=== PATIENT | male | born 1950 | race Caucasian/White ===

== ENCOUNTER → 2016-09-05 | Outpatient (CLI) | payer MEDICARE ==
[~2016-09-05] MED LIST: AMLO5TAB22 PO; DIOV320T PO; METF-324 PO; OMEP20TA PO; PREC25TA PO
[2016-09-05 10:01] LABS: HEMATOCRIT 33.9 % (39.0-51.0); MEAN CELL VOLUME 81.5 FL (80.0-100.0); MEAN CORPUSCULAR HEMOGLOBIN 28.1 PG (27.0-34.0); MEAN CORPUSCULAR HGB CONC 34.5 % (32.0-36.0); PLATELET COUNT 220 TH/MM3 (150-450); RED BLOOD COUNT 4.16 MIL/MM3 (4.50-5.90); RED CELL DISTRIBUTION WIDTH 13.7 % (11.6-17.2); REVIEW FLAG FINAL; WHITE BLOOD COUNT 7.9 TH/MM3 (4.0-11.0)
[2016-09-05 10:08] LABS: HEMOGLOBIN A1a 1.9 %; HEMOGLOBIN A1b 1.9 %; HEMOGLOBIN Ao 81.5 %; HEMOGLOBIN LA1C 2.6 %; HEMOGLOBIN P3 4.3 %
[2016-09-05 10:57] LABS: ALKALINE PHOSPHATASE 55 U/L (45-117); ALT (GPT) 32 U/L (12-78); ANION GAP 9 MEQ/L (5-15); AST (GOT) 15 U/L (15-37); BICARBONATE 26.1 MEQ/L (21.0-32.0); BLOOD UREA NITROGEN 19 MG/DL (7-18); CHLORIDE 103 MEQ/L (98-107); GLOMERULAR FILTRATION RATE 57 ML/MIN (>89); GLUCOSE,FASTING 203 MG/DL (74-99); HDL CHOLESTEROL 37.5 MG/DL (40.0-60.0); LDL CHOLESTEROL 101 MG/DL (0-99); POTASSIUM 4.3 MEQ/L (3.5-5.1); SODIUM (NA) 138 MEQ/L (136-145); TOTAL BILIRUBIN ADULT 0.5 MG/DL (0.2-1.0)
== END ==
LOC: CLAB 09:28
PROVIDERS: ATTEND Family Medicine
DX: E78.4 Other hyperlipidemia (principal); E11.9 Type 2 diabetes mellitus without complications; I10 Essential (primary) hypertension; N28.9 Disorder of kidney and ureter, unspecified
CPT/HCPCS: 36415; 80053; 80061; 83036; 84443; 85027

== ENCOUNTER 2016-09-23 18:47 | Emergency (ER) | payer OTHER, MEDICARE ==
[~2016-09-23] VITALS: Ht 182.9 cm; Wt 99.0 kg
[2016-09-23 18:49] VITALS: BP 194/89; PULSE 98; RESP 17; TEMP 98.1; O2SAT 98
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
== END 2016-09-23 19:30 | disposition home or self-care (01) ==
LOC: NEPK 18:47
DX: Z04.1 Encounter for examination and observation following transport accident (principal); I10 Essential (primary) hypertension
CPT/HCPCS: 99283

== ENCOUNTER → 2016-11-17 | Outpatient (CLI) | payer MEDICARE ==
[2016-11-17 08:58] LABS: AUTOMATED NEUTROPHIL # 4.1 TH/MM3 (1.8-7.7); BASOPHIL # 0.1 TH/MM3 (0-0.2); EOSINOPHIL # 0.3 TH/MM3 (0-0.4); HEMATOCRIT 34.7 % (39.0-51.0); HEMO FLAGS DIFF FINAL; LYMPH % 24.6 % (9.0-44.0); LYMPHOCYTE # 1.6 TH/MM3 (1.0-4.8); MEAN CELL VOLUME 81.2 FL (80.0-100.0); MEAN CORPUSCULAR HEMOGLOBIN 28.2 PG (27.0-34.0); MEAN CORPUSCULAR HGB CONC 34.7 % (32.0-36.0); MONO % 8.9 % (0.0-8.0); NEUT % 61.5 % (16.0-70.0); PLATELET COUNT 237 TH/MM3 (150-450); RED BLOOD COUNT 4.27 MIL/MM3 (4.50-5.90); RED CELL DISTRIBUTION WIDTH 14.3 % (11.6-17.2); WHITE BLOOD COUNT 6.7 TH/MM3 (4.0-11.0)
== END ==
LOC: CLAB 08:26
PROVIDERS: ATTEND Family Medicine
DX: E11.9 Type 2 diabetes mellitus without complications (principal); D64.9 Anemia, unspecified
CPT/HCPCS: 36415; 85025

== ENCOUNTER → 2017-01-13 | Outpatient (CLI) | payer MEDICARE ==
[2017-01-13 11:53] LABS: AUTOMATED NEUTROPHIL # 4.7 TH/MM3 (1.8-7.7); BASOPHIL # 0.1 TH/MM3 (0-0.2); BASOPHIL % 0.8 % (0.0-2.0); EOSINOPHIL # 0.2 TH/MM3 (0-0.4); EOSINOPHIL % 2.3 % (0.0-4.0); HEMO FLAGS DIFF FINAL; LYMPH % 20.8 % (9.0-44.0); LYMPHOCYTE # 1.4 TH/MM3 (1.0-4.8); MEAN CELL VOLUME 81.4 FL (80.0-100.0); MEAN CORPUSCULAR HEMOGLOBIN 27.8 PG (27.0-34.0); MEAN CORPUSCULAR HGB CONC 34.1 % (32.0-36.0); NEUT % 69.1 % (16.0-70.0); PLATELET COUNT 248 TH/MM3 (150-450); RED BLOOD COUNT 4.05 MIL/MM3 (4.50-5.90); RED CELL DISTRIBUTION WIDTH 14.6 % (11.6-17.2); WHITE BLOOD COUNT 6.8 TH/MM3 (4.0-11.0)
[2017-01-13 12:17] LABS: ANION GAP 7 MEQ/L (5-15); AST (GOT) 15 U/L (15-37); BICARBONATE 25.8 MEQ/L (21.0-32.0); BLOOD UREA NITROGEN 25 MG/DL (7-18); CHLORIDE 105 MEQ/L (98-107); GLOMERULAR FILTRATION RATE 42 ML/MIN (>89); GLUCOSE,FASTING 129 MG/DL (74-99); POTASSIUM 4.4 MEQ/L (3.5-5.1); SODIUM (NA) 138 MEQ/L (136-145)
[2017-01-13 12:29] LABS: ALKALINE PHOSPHATASE 64 U/L (45-117); ALT (GPT) 27 U/L (12-78); HDL CHOLESTEROL 35.5 MG/DL (40.0-60.0); LDL CHOLESTEROL 123 MG/DL (0-99); TOTAL BILIRUBIN ADULT 0.5 MG/DL (0.2-1.0)
[2017-01-13 17:19] LABS: HEMOGLOBIN A1a 1.2 %; HEMOGLOBIN A1b 2.1 %; HEMOGLOBIN Ao 81.4 %; HEMOGLOBIN LA1C 2.5 %; HEMOGLOBIN P3 4.4 %
== END ==
LOC: CLAB 11:26
PROVIDERS: ATTEND Family Medicine
DX: E11.9 Type 2 diabetes mellitus without complications (principal); D64.9 Anemia, unspecified; I10 Essential (primary) hypertension; N40.0 Benign prostatic hyperplasia without lower urinary tract symptoms; N28.9 Disorder of kidney and ureter, unspecified
CPT/HCPCS: 36415; 80053; 80061; 83036; 84443; 85025

== ENCOUNTER → 2017-04-04 | Outpatient (CLI) | payer MEDICARE ==
[2017-04-04 10:11] LABS: ALBUMIN 3.7 GM/DL (3.4-5.0); AST (GOT) 19 U/L (15-37); BICARBONATE 24.8 MEQ/L (21.0-32.0); BLOOD UREA NITROGEN 32 MG/DL (7-18); CALCIUM 8.5 MG/DL (8.5-10.1); CHLORIDE 106 MEQ/L (98-107); CREATININE 1.49 MG/DL (0.60-1.30); GLOMERULAR FILTRATION RATE 47 ML/MIN (>89); GLUCOSE,FASTING 194 MG/DL (74-99); SODIUM (NA) 137 MEQ/L (136-145)
[2017-04-04 10:12] LABS: ALT (GPT) 35 U/L (12-78)
[2017-04-04 10:15] LABS: ALKALINE PHOSPHATASE 65 U/L (45-117); TOTAL BILIRUBIN ADULT 0.4 MG/DL (0.2-1.0); TOTAL PROTEIN 7.3 GM/DL (6.4-8.2)
[2017-04-04 10:59] LABS: HEMATOCRIT 34.1 % (39.0-51.0); HEMOGLOBIN 11.7 GM/DL (13.0-17.0); MEAN CELL VOLUME 80.5 FL (80.0-100.0); MEAN CORPUSCULAR HEMOGLOBIN 27.7 PG (27.0-34.0); MEAN CORPUSCULAR HGB CONC 34.5 % (32.0-36.0); MEAN PLATELET VOLUME 7.5 FL (7.0-11.0); PLATELET COUNT 252 TH/MM3 (150-450); RED BLOOD COUNT 4.23 MIL/MM3 (4.50-5.90); RED CELL DISTRIBUTION WIDTH 14.5 % (11.6-17.2); WHITE BLOOD COUNT 6.5 TH/MM3 (4.0-11.0)
[2017-04-04 16:51] LABS: HEMOGLOBIN A1C 7.9 % (4.3-6.0)
== END ==
LOC: CLAB 09:15
PROVIDERS: ATTEND Family Medicine
DX: E78.4 Other hyperlipidemia (principal); E11.9 Type 2 diabetes mellitus without complications; I10 Essential (primary) hypertension; N40.0 Benign prostatic hyperplasia without lower urinary tract symptoms; N28.9 Disorder of kidney and ureter, unspecified; D64.9 Anemia, unspecified; Z12.5 Encounter for screening for malignant neoplasm of prostate; Z68.28 Body mass index [BMI] 28.0-28.9, adult
CPT/HCPCS: 36415; 80053; 82652; 83036; 83970; 85027

== ENCOUNTER → 2017-05-03 | Outpatient (CLI) | payer MEDICARE ==
[2017-05-03 09:37] LABS: HEMATOCRIT 32.6 % (39.0-51.0); MEAN CELL VOLUME 79.9 FL (80.0-100.0); MEAN CORPUSCULAR HEMOGLOBIN 26.9 PG (27.0-34.0); MEAN CORPUSCULAR HGB CONC 33.7 % (32.0-36.0); PLATELET COUNT 228 TH/MM3 (150-450); RED BLOOD COUNT 4.08 MIL/MM3 (4.50-5.90); RED CELL DISTRIBUTION WIDTH 14.8 % (11.6-17.2); REVIEW FLAG FINAL; WHITE BLOOD COUNT 7.2 TH/MM3 (4.0-11.0)
[2017-05-03 10:03] LABS: ANION GAP 7 MEQ/L (5-15); AST (GOT) 14 U/L (15-37); BICARBONATE 23.9 MEQ/L (21.0-32.0); BLOOD UREA NITROGEN 30 MG/DL (7-18); CHLORIDE 105 MEQ/L (98-107); GLOMERULAR FILTRATION RATE 42 ML/MIN (>89); GLUCOSE,FASTING 151 MG/DL (74-99); POTASSIUM 4.2 MEQ/L (3.5-5.1); SODIUM (NA) 136 MEQ/L (136-145)
[2017-05-03 10:04] LABS: ALT (GPT) 27 U/L (12-78)
[2017-05-03 10:14] LABS: ALKALINE PHOSPHATASE 73 U/L (45-117); LDL CHOLESTEROL 110 MG/DL (0-99); TOTAL BILIRUBIN ADULT 0.6 MG/DL (0.2-1.0)
[2017-05-03 17:21] LABS: HEMOGLOBIN A1a 1.2 %; HEMOGLOBIN A1b 2.3 %; HEMOGLOBIN Ao 80.9 %; HEMOGLOBIN LA1C 2.6 %; HEMOGLOBIN P3 4.5 %
== END ==
LOC: CLAB 08:44
PROVIDERS: ATTEND Family Medicine
DX: E78.4 Other hyperlipidemia (principal); E11.9 Type 2 diabetes mellitus without complications; I10 Essential (primary) hypertension; N40.0 Benign prostatic hyperplasia without lower urinary tract symptoms; N28.9 Disorder of kidney and ureter, unspecified; D64.9 Anemia, unspecified
CPT/HCPCS: 36415; 80053; 80061; 83036; 84153; 84443; 85027

== ENCOUNTER → 2017-09-08 | Outpatient (CLI) | payer MEDICARE ==
[2017-09-08 09:09] LABS: HEMATOCRIT 34.7 % (39.0-51.0); HEMOGLOBIN 11.9 GM/DL (13.0-17.0); MEAN CELL VOLUME 80.1 FL (80.0-100.0); MEAN CORPUSCULAR HEMOGLOBIN 27.5 PG (27.0-34.0); MEAN CORPUSCULAR HGB CONC 34.4 % (32.0-36.0); MEAN PLATELET VOLUME 7.8 FL (7.0-11.0); PLATELET COUNT 239 TH/MM3 (150-450); RED BLOOD COUNT 4.33 MIL/MM3 (4.50-5.90); RED CELL DISTRIBUTION WIDTH 14.6 % (11.6-17.2); WHITE BLOOD COUNT 5.8 TH/MM3 (4.0-11.0)
[2017-09-08 09:46] LABS: ALBUMIN 3.8 GM/DL (3.4-5.0); AST (GOT) 22 U/L (15-37); BICARBONATE 24.1 MEQ/L (21.0-32.0); BLOOD UREA NITROGEN 28 MG/DL (7-18); CALCIUM 8.5 MG/DL (8.5-10.1); CHLORIDE 106 MEQ/L (98-107); CREATININE 1.61 MG/DL (0.60-1.30); GLOMERULAR FILTRATION RATE 43 ML/MIN (>89); GLUCOSE,FASTING 188 MG/DL (74-99); SODIUM (NA) 138 MEQ/L (136-145)
[2017-09-08 09:47] LABS: CHOLESTEROL 208 MG/DL (120-200)
[2017-09-08 09:58] LABS: ALKALINE PHOSPHATASE 64 U/L (45-117); ALT (GPT) 32 U/L (12-78); CHOLESTEROL/ HDL RATIO 6.01 RATIO; HDL CHOLESTEROL 34.6 MG/DL (40.0-60.0); LDL CHOLESTEROL 118 MG/DL (0-99); TOTAL BILIRUBIN ADULT 0.3 MG/DL (0.2-1.0); TOTAL PROTEIN 7.2 GM/DL (6.4-8.2); TRIGLYCERIDES 277 MG/DL (42-150)
== END ==
LOC: CLAB 08:44
PROVIDERS: ATTEND Family Medicine
DX: E11.9 Type 2 diabetes mellitus without complications (principal); I10 Essential (primary) hypertension; E78.4 Other hyperlipidemia; N40.0 Benign prostatic hyperplasia without lower urinary tract symptoms; D64.9 Anemia, unspecified; Z68.28 Body mass index [BMI] 28.0-28.9, adult
CPT/HCPCS: 36415; 80053; 80061; 83036; 84443; 85027

== ENCOUNTER 2018-04-16 09:06 | Observation (INO) ==
[2018-04-16] MEDS ORDERED: Chlorhexidine Gluconate 2% 1 Pack (2 Cloths) TOPICAL ONE (09:43)
[2018-04-16] MEDS ORDERED: Metoprolol Tartrate 25 MG Tablet PO ONE (09:43)
[2018-04-16] MEDS ORDERED: Chlorhexidine 4% Topical 120 APPLIC/120 ML Bottle TOPICAL SCH (09:45)
[2018-04-16] MEDS ORDERED: Sodium Chlor 0.9% Inj 500 ML IV.SIG SCH (10:00)
[2018-04-16] MEDS ORDERED: ceFAZolin 2 GM Premix Inj 2 GM/50 ML PIGGYBACK IV.SIG SCH (10:00)
[2018-04-16] MEDS ORDERED: Vancomycin Inj 1,000 MG in Sodium Chlor 0.9% Inj 250 ML IV.SIG SCH (10:00)
[2018-04-16] MEDS ORDERED: Bupivacaine 0.5% Inj 50 ML MDV Vial ONE (11:46)
[2018-04-16] MEDS ORDERED: Lidocaine PF 1% Inj 5 ML Syringe OTHER ONE (13:04)
[2018-04-16] MEDS ORDERED: Neostigmine Inj 5 MG/5 ML Syringe IV.PUSH ONE (13:04)
[2018-04-16] MEDS ORDERED: Phenylephrine/NS 1000 MCG/10ML Syringe IV.PUSH ONE (13:04)
[2018-04-16] MEDS ORDERED: Glycopyrrolate Inj 1 MG/5 ML Syringe IV.PUSH ONE (13:04)
[2018-04-16] MEDS ORDERED: fentaNYL Citrate Inj 100 MCG/2 ML Ampul ONE (15:03)
--- NOTE | 2018-04-16 16:34 | P.OP ---
- Preoperative Diagnosis (1) Osteoarthritis of right shoulder (2) Calcific tendinitis of right shoulder - Postoperative Diagnosis (1) Osteoarthritis of right shoulder (2) Calcific tendinitis of right shoulder Date of procedure: 04/16/18 Procedure: Left total shoulder arthroplasty Excision of calcific tendinitis with rotator cuff repair Implants: OVO size 56 x 52 motion component humeral head with a 12 mm taper post and a single glenoid component [facility] Surgeon: Guillaume Urban MD Dining Room Captain: Sujey Taylor PA-C (Ashley) The surgical procedure was assisted by my physician's speech and language assistant. Her presence was necessary throughout the case for manipulation and positioning of the surgical extremity. My PA was assisting me throughout the duration of this procedure. The skill set of the physician speech and language assistant was medically necessary to complete this procedure. During the surgical case the director medical surgical was working at the back table and the physician speech and language assistant was directly assisting me. Estimated blood loss (mL): 150 Pathology: none sent Operation and Findings: Patient was taken to the operative suite and after undergoing an adequate level of general anesthesia preceded by a regional block in the holding area was kept supine on the operating table. He was placed into the beachchair position. Preoperative antibiotics consisted of vancomycin 1 g IV and Ancef 2 g IV. The left upper extremity was then prepped and draped in usual sterile fashion with alcohol, Hibiclens and ChloraPrep. A standard deltopectoral approach to the shoulder was made with incision extending from the coracoid process to the deltoid insertion. This was carried out through skin and subcutaneous tissue with a knife. The muscular fascia was incised. The cephalic vein was identified and protected. It was retracted medially cauterizing perforating veins. The subscapularis bursa was partially excised. The conjoined tendon was identified and gently retracted medially. A subscapularis tenotomy was made medial to the insertion on the lesser tuberosity leaving a cuff of tissue for later closure. A large joint effusion was evacuated. The rotator cuff was noted to be intact. Preoperative x-rays did show a large calcific deposit in the supraspinatus insertion and this was identified. A longitudinal incision was made and a large amount of calcareous deposit removed. This left a small defect in the rotator cuff which was closed primarily with #2 Tycron. The subscapularis tendon was tagged. The capsule was released. The humeral head was externally rotated. The axillary nerve was palpable in the depths of the wound and avoided. The humeral head was then sized to a 56 x 52. A central pin was placed. The humeral head was subsequently reamed with the surface reamer. The centering shaft was placed in the preparation trial was placed and fixation pin seated. The wound was thoroughly irrigated. The taper post was seated. The secondary reaming was completed and the excess central bone plug removed. Attention was then focused on the glenoid. A drill guide was placed and a guide pin placed centrally. This was subsequently reamed. A trial single component was then seated. Wound was again thoroughly irrigated. Bone cement was prepared on the back table. An epinephrine sponge was placed for hemostasis. Bone cement was then applied to the glenoid and the polyethylene glenoid component seated and held with compression until maturation. The humeral head component was then impacted into place with a Mcrae taper fit. A reduction was easily accomplished and good range of motion and stability noted. The wound was again thoroughly irrigated with pulse lavage. The subscapularis tenotomy was closed with #1 Tycron and 0 PDS to include the interval The muscular fascia was closed with #1 Vicryl suture, the deep tissue with 0 Vicryl suture, subcutaneous tissue with 2-0 Vicryl suture and 3-0 Monocryl and Steri-Strips on the skin. Sterile dressings were applied, the patient was placed into a sling and swath, awakened, transferred to the hospital bed and taken to recovery room in stable condition.
[2018-04-16] MEDS ORDERED: Bisacodyl 10 MG Supp RECTAL PRN (16:40)
[2018-04-16] MEDS ORDERED: Aluminum/Magnesium/Simethacone Susp 30 ML UDC PO PRN (16:40)
[2018-04-16] MEDS ORDERED: Morphine Inj 4 MG/ML Vial IV.PUSH PRN (16:40)
[2018-04-16] MEDS ORDERED: Post-op Orders (for Pharmacy) OTHER STA (16:40)
[2018-04-16 17:13] LABS: Calcium 8.3 mg/dL (8.5-10.1); Carbon Dioxide 23.6 meq/L (21.0-32.0)
[2018-04-16] MEDS ORDERED: Dextrose 50% in Water 50 ML Vial IV.PUSH PRN (17:14)
--- NOTE | 2018-04-16 17:21 | XR ---
EXAM DATE: 04/16/2018 5:16 PM EST AGE/SEX: 67 years / Male INDICATIONS: Post op left shoulder. CLINICAL DATA: This is the patient's initial encounter. Patient reports that signs and symptoms have been present for 1 day and indicates a pain score of Nonresponsive. MEDICAL/SURGICAL HISTORY: None. None. COMPARISON: No prior exams available for comparison. FINDINGS: Status post a shoulder arthroplasty on the left. Prosthesis is well-seated. Alignment anatomic. CONCLUSION: Anatomic alignment Electronically signed by: Micky Gibbons MD 04/16/2018 5:19 PM EST
--- NOTE | 2018-04-16 18:19 | P.CON ---
History of Present Illness Service: [facility] Consult date: 04/16/18 Requesting Physician: Guillaume Urban Reason for Consult: Medical Management Primary Care Provider: Juan Miguel Reynolds MD Chief Complaint: "Sleepy" History of Present Illness: Patient is a 67-year-old male with past medical history of diabetes, hypertension, CKD 3 who initially came in to the hospital surgical intervention secondary to osteoarthritis of the left shoulder. Patient is status post left total shoulder arthroplasty by Dr. Urban 04/16/18. [facility] consulted for assistance with medical management. Patient seen and examined today. Awake and alert but prefers to close his eyes. States he is waking up. States pain is manageable. States he has diabetes and has been on occasions followed by Dr. Beltran and outpatient. Denies SOB/ dyspnea. Denies chest pain, palpitations, headaches, dizziness. Denies fevers, chills, n/v/d. Denies numbness and tingling of extremities. Review of Systems All other systems reviewed negative except as stated in [facility] - History History Provided By: Patient - Medical History Medical History: Medical History (Last Reviewed 04/16/18 @ 18:05 by SANDEEP Castillo) Cardiac arrhythmia Diabetes GERD (gastroesophageal reflux disease) Hypertension Left shoulder pain Neuropathy - Surgical History Surgical History: Surgical History (Last Reviewed 04/16/18 @ 18:05 by SANDEEP Castillo) History of repair of rotator cuff Status post correction of deviated nasal septum Hx of cataract surgery Hx of tonsillectomy - Family History Family History: Family History (Last Updated 04/16/18 @ 18:06 by SANDEEP Castillo) Other Family history non-contributory - Social History I have reviewed the patient's Social History: Yes - Tobacco History Second Hand Smoke Exposure: No Tobacco Use In Past 30 Days: No Smoking Status: Former smoker - Alcohol History How Often Do You Have a Drink Containing Alcohol: Monthly or less - Substance Use History Substance History: No History of Abuse - Travel History Recent Travel in the [place] Within the Last 8 Weeks: No Recent Travel Out of the Country Within the Last 8 Weeks: No Medications and Allergies Active Medications: Active Medications Al Hydrox/Mg Hydrox/Simethicone (Mag-Al Plus Susp Liq) 30 ml PO Q6H PRN PRN Reason: INDIGESTION Al Hydroxide/Mg Hydroxide (Milk Of Magnesia Liq) 30 ml PO BID PRN PRN Reason: Mild Constipation Amlodipine Besylate (Norvasc) 5 mg PO DAILY PENDING SALE TO [facility] Bisacodyl (Dulcolax Supp) 10 mg RECTAL DAILY PRN PRN Reason: SEVERE CONSITIPATION Chlorhexidine Gluconate (Hibiclens 4% Topical) 0 applicatio TOPICAL ONCE PENDING SALE TO [facility] Stop: 04/20/18 09:44 Last Admin: 04/16/18 11:04 Dose: 1 applicatio Dextrose (D50w Vial) 50 ml IV.PUSH UNSCH PRN PRN Reason: PER HYPOGLYCEMIA PROTOCOL Diphenhydramine HCl (Benadryl) 25 mg PO Q6H PRN PRN Reason: ITCHING Glucagon (Glucagon Inj) 1 mg OTHER PRN PRN PRN Reason: for Hypoglycemia Protocol Vancomycin HCl 1,000 mg/ (Sodium Chloride) 250 mls @ 250 mls/hr IV.SIG HYDRAULIC PLUMBER PENDING SALE TO [facility] Stop: 04/19/18 09:40 Last Infusion: 04/16/18 15:10 Dose: Infused Cefazolin Sodium/Dextrose (Ancef 2 Gm Premix Inj) 2 gm in 50 mls @ 100 mls/hr IV.SIG HYDRAULIC PLUMBER PENDING SALE TO [facility] Stop: 04/20/18 09:59 Last Infusion: 04/16/18 15:09 Dose: Infused Lactated Ringer's (Lr 1000 Ml Inj) 1,000 mls @ 30 mls/hr IV.SIG .Q24H PENDING SALE TO [facility] Stop: 04/17/18 09:44 Last Infusion: 04/16/18 15:41 Dose: Infused Sodium Chloride (Ns Inj) 500 mls @ 30 mls/hr IV.SIG .[id number] PENDING SALE TO [facility] Stop: 04/17/18 02:39 Cefazolin Sodium/Dextrose (Ancef 2 Gm Premix Inj) 2 gm in 50 mls @ 100 mls/hr IV.SIG Q6H PENDING SALE TO [facility] Stop: 04/17/18 08:29 Lactated Ringer's (Lr 1000 Ml Inj) 1,000 mls @ 80 mls/hr IV.CONT .[id number] PENDING SALE TO [facility] Last Admin: 04/16/18 16:30 Dose: 80 mls/hr Insulin Aspart (Novolog Insulin Correctional Sugar Inj) 0 unit SQ ACHS [facility]; Protocol Lactulose (Lactulose Liq) 30 ml PO DAILY PRN PRN Reason: SEVERE CONSITIPATION Losartan Potassium (Cozaar) 100 mg PO DAILY PENDING SALE TO [facility] Miscellaneous Information (Misc Nursing Information) 0 each OTHER UNSCH PRN PRN Reason: SEE LABEL COMMENTS Stop: 04/17/18 16:16 Morphine Sulfate (Morphine Inj) 2 mg IV.PUSH Q3H PRN PRN Reason: BREAKTHROUGH PAIN Ondansetron HCl (Zofran Inj) 4 mg IV.PUSH Q6H PRN PRN Reason: NAUSEA OR VOMITING Oxycodone/Acetaminophen (Percocet 5/325 Mg) 1 tab PO Q4H PRN PRN Reason: PAIN LESS THAN 5 ON SCALE Pantoprazole Sodium (Protonix) 20 mg PO DAILY [facility] Senna/Docusate Sodium (Stacey-Colace) 1 tab PO BID [facility] Sennosides (Senokot) 17.2 mg PO BID PRN PRN Reason: Moderate Constipation Sodium Chloride (Ns Flush) 2 ml IV.FLUSH BID [facility] Sodium Chloride (Ns Flush) 2 ml IV.FLUSH PRN PRN PRN Reason: FLUSH AFTER USING IV ACCESS Temazepam (Restoril) 15 mg PO HS PRN PRN Reason: INSOMNIA Allergies Allergy/AdvReac Type Severity Reaction Status Date / Time penicillin G Allergy Unknown Rash Verified 04/16/18 09:58 Home Medications Medication Instructions Recorded Confirmed Type acarbose 25 mg PO TIDAC 04/09/18 04/16/18 History amlodipine 5 mg PO DAILY 04/09/18 04/16/18 History empagliflozin [Jardiance] 10 mg PO DAILY 04/09/18 04/16/18 History linagliptin [Tradjenta] 5 mg PO DAILY 04/09/18 04/16/18 History metformin 1,000 mg PO BID 04/09/18 04/16/18 History omeprazole 20 mg PO DAILY 04/09/18 04/16/18 History olmesartan 40 mg PO DAILY 04/16/18 04/16/18 History oxycodone-acetaminophen 1 tab PO Q4-6H PRN 04/16/18 04/16/18 History Physical Exam Vital signs: Vital Signs 04/16/18 10:05 04/16/18 11:02 04/16/18 12:04 Temperature 98.4 F Pulse Rate 64 75 74 Respiratory Rate 16 16 20 Blood Pressure 149/84 H 119/70 110/66 Pulse Oximetry 97 98 96 04/16/18 16:15 04/16/18 16:30 04/16/18 16:45 Temperature 98.6 F Pulse Rate 101 H 91 H 91 H Respiratory Rate 18 16 16 Blood Pressure 183/90 H 150/81 H 150/81 H Pulse Oximetry 99 98 98 04/16/18 17:00 Temperature 98.5 F Pulse Rate 96 H Respiratory Rate 14 Blood Pressure 150/84 H Pulse Oximetry 98 Intake & Output 04/15/18 04/16/18 04/16/18 18:59 06:59 18:59 Intake Total 1600 / 1600 Output Total 150 / 150 Balance 1450 / 1450 Weight 86.1 kg Intake: IV 1300 / 1300 LR 1000 mL Inj 1,000 ML @ 30 1000 / 1000 mls/hr IV.SIG .Q24H [facility] Rx#: [id number] Vancomycin Inj 1,000 MG In NS 250 / 250 Inj 250 ML @ 250 mls/hr IV.SIG HYDRAULIC PLUMBER [facility] Rx#:[id number] Ancef 2 GM Premix Inj 2 gm In 50 / 50 50 ml @ 100 mls/hr IV.SIG HYDRAULIC PLUMBER [facility] Rx#:[id number] Anesthesia Amount 300 / 300 Output: Estimated Blood Loss 150 / 150 Other: Weight On Admission 86.1 kg Narrative: GENERAL: This is a well-nourished, well-developed patient, in no apparent distress. SKIN: Warm and dry. HEENT: Normocephalic. Pupils equal round and reactive. Nose without bleeding. Airway patent. NECK: Trachea midline. CARDIOVASCULAR: Regular rate and rhythm without murmurs, gallops, or rubs. RESPIRATORY: Clear to auscultation. Breath sounds equal bilaterally. No wheezes , rales, or rhonchi. GASTROINTESTINAL: Abdomen soft, non-tender, nondistended. Bowel Sounds normoactive x4. MUSCULOSKELETAL: Extremities without clubbing, cyanosis. Left Shoulder Incision CDI, Sling in place. Pulses palpable +2 Radial NEUROLOGICAL: Awake and alert. Oriented to time, place, person. Moves all extremities. Normal speech. Results - Labs CBC & Chem 7: 04/16/18 16:45 Labs: Laboratory Results - last 24 hr 04/16/18 04/16/18 04/16/18 10:00 16:26 16:45 Sodium 138 Potassium 5.0 Chloride 103 Carbon Dioxide 23.6 Anion Gap 11 BUN 34 H Creatinine 1.70 H Estimated GFR 40 L POC Glucose 254 H Random Glucose 270 H Calcium 8.3 L Blood Type B Positive Blood Type Recheck Required Antibody Screen Negative - Imaging Impressions Shoulder X-Ray 04/16/18 00:00 CONCLUSION: Anatomic alignment Assessment and Plan - Plan Patient is a 67-year-old male with past medical history of diabetes, hypertension who initially came in to the hospital surgical intervention secondary to osteoarthritis of the left shoulder. Patient is status post left total shoulder arthroplasty. [facility] consulted for assistance with medical management. Status post left total shoulder arthroplasty, Dr. Urban 04/16/18 Left shoulder osteoarthritis -Occupational Therapy/physical therapy eval and treat -Pain management with bowel regimen DM 2 -Home medications include Jardiance 10 mg, Tradjenta 5 mg, bicarb is 50 mg 3 times a day with food, metformin 1000 mg -Hold off on p.o. meds. This is been discussed and explained with patient and -Insulin sliding scale, Accu-Cheks -Monitor for hypoglycemia. Diabetic diet HTN -Continue home medication amlodipine 5 mg daily, Cozaar 100 mg p.o. daily ( Olmesartan 40mg) -BP trend Chronic kidney disease stage III -Patient states that he knew about his kidney disease but has not seen any consulting sales executive and outpatient -Avoid nephrotoxins -Monitor renal indicis DVT prop SCDs PPI pantoprazole Code Status: Full code Discussed Condition With: Patient, , nursing, Dr. Adam Discharge Planning: DC disposition by Orthopedic team
[2018-04-16] MEDS: ceFAZolin 2 GM Premix Inj 2 GM/50 ML PIGGYBACK IV.SIG SCH (20:33)
[2018-04-16] MEDS: Senna/Docusate Sodium 8.6/50 MG Tablet PO SCH (20:33)
[2018-04-16] MEDS: Insulin NovoLOG Aspart Correctional Sugar Inj SQ SCH (20:40)
[2018-04-16] MEDS ORDERED: Temazepam 15 MG Capsule PO PRN (21:00)
[2018-04-17] MEDS: ceFAZolin 2 GM Premix Inj 2 GM/50 ML PIGGYBACK IV.SIG SCH ×2 (02:29→08:01)
[2018-04-17 05:47] LABS: Hematocrit 30.8 % (39.0-51.0); Hemoglobin 10.7 gm/dL (13.0-17.0)
--- NOTE | 2018-04-17 07:35 | P.PNOP ---
Subjective Interval history: Postoperative day 1 left total shoulder arthroplasty. The patient is awake alert and sitting in a bedside chair. His is at the bedside. His pain is well controlled. He has no other specific complaint. Physical Exam Vital signs: Vital Signs 04/16/18 10:05 04/16/18 11:02 04/16/18 12:04 Temperature 98.4 F Pulse Rate 64 75 74 Respiratory Rate 16 16 20 Blood Pressure 149/84 H 119/70 110/66 Pulse Oximetry 97 98 96 04/16/18 16:15 04/16/18 16:30 04/16/18 16:45 Temperature 98.6 F Pulse Rate 101 H 91 H 91 H Respiratory Rate 18 16 16 Blood Pressure 183/90 H 150/81 H 150/81 H Pulse Oximetry 99 98 98 04/16/18 17:00 04/16/18 17:50 04/16/18 20:00 Temperature 98.5 F 98.6 F 98.5 F Pulse Rate 96 H 103 H 109 H Respiratory Rate 14 18 17 Blood Pressure 150/84 H 148/78 H 133/75 Pulse Oximetry 98 95 96 04/17/18 00:00 04/17/18 04:00 Temperature 98.0 F 97.8 F Pulse Rate 103 H 91 H Respiratory Rate 17 18 Blood Pressure 126/78 162/80 H Pulse Oximetry 97 97 Intake & Output 04/16/18 04/17/18 04/17/18 18:59 06:59 18:59 Intake Total 1600 / 1600 1100 / 1100 Output Total 150 / 150 Balance 1450 / 1450 1100 / 1100 Weight 86.1 kg 86.4 kg Intake: IV 1300 / 1300 1100 / 1100 LR 1000 mL Inj 1,000 ML @ 80 1000 / 1000 mls/hr IV.CONT .[id number] [facility] Rx# :[id number] LR 1000 mL Inj 1,000 ML @ 30 1000 / 1000 mls/hr IV.SIG .Q24H [facility] Rx#: [id number] Vancomycin Inj 1,000 MG In NS 250 / 250 Inj 250 ML @ 250 mls/hr IV.SIG DECK MECHANIC [facility] Rx#:[id number] Ancef 2 GM Premix Inj 2 gm In 50 / 50 100 / 100 50 ml @ 100 mls/hr IV.SIG Q6H [facility] Rx#:[id number] Anesthesia Amount 300 / 300 Output: Estimated Blood Loss 150 / 150 Other: # Voids 5 Date of Last Bowel Movement 04/16/18 04/16/18 Weight On Admission 86.1 kg Narrative: The left shoulder dressing is dry and intact. There is mild swelling. There is no drainage. He has normal sensation over the lateral deltoid. He has full mobility of the elbow and wrist. Neurologically no focal deficit. Results - Labs CBC & Chem 7: 04/17/18 04:57 04/16/18 16:45 Laboratory Results - last 24 hr 04/16/18 04/16/18 04/16/18 10:00 16:26 16:45 Hgb Hct Sodium 138 Potassium 5.0 Chloride 103 Carbon Dioxide 23.6 Anion Gap 11 BUN 34 H Creatinine 1.70 H Estimated GFR 40 L POC Glucose 254 H Random Glucose 270 H Calcium 8.3 L Blood Type B Positive Blood Type Recheck Required Antibody Screen Negative 04/16/18 04/16/18 04/17/18 18:02 20:36 04:57 Hgb 10.7 L Hct 30.8 L Sodium Potassium Chloride Carbon Dioxide Anion Gap BUN Creatinine Estimated GFR POC Glucose 271 H 373 H Random Glucose Calcium Blood Type Blood Type Recheck Antibody Screen - Imaging Impressions Shoulder X-Ray 04/16/18 00:00 CONCLUSION: Anatomic alignment Assessment and Plan - Problem List (1) Osteoarthritis of left shoulder Code(s): M19.012 - Primary osteoarthritis, left shoulder Status: Acute (2) Calcific tendonitis of left shoulder Code(s): M75.32 - Calcific tendinitis of left shoulder Status: Acute - Assessment and Plan Orthopedic status stable postoperative day 1 left total shoulder arthroplasty for discharge. Follow-up 1 week.
--- NOTE | 2018-04-17 07:59 | P.DS ---
Date of admission: 04/16/18 09:06 Primary care physician: Juan Miguel Reynolds MD Attending physician on discharge: Guillaume Urbna Anticipated date of discharge: 04/17/18 Brief History from admission: This 67-year-old male has a long history of progressive left shoulder pain. He is undergone previous rotator cuff repair in the remote past. More recent x- rays revealed advanced osteoarthritis. He is now unresponsive to nonoperative measures. He has sharp pain which severely limits his daily activity. He is also noted to have an area of calcific tendinitis in the region of the supraspinatus. Given the alternatives of treatment he presents for left total shoulder arthroplasty. Patient update on day of discharge: On the day of admission the patient was taken to the operating room where he underwent a left total shoulder arthroplasty. The patient tolerated the procedure well. For details of the operative procedure please see dictated operative note. At the time of discharge the patient is afebrile. His dressing was dry and he was neurovascularly intact. His pain was well controlled with oral medication. DS: Diagnosis - Discharge Diagnosis (1) Osteoarthritis of left shoulder Status: Acute (2) Calcific tendonitis of left shoulder Status: Acute DS: Medications - Discharge Medications Prescriptions: oxycodone-acetaminophen 1 tab PO Q4H PRN #30 tab PRN Reason: Pain Less Than 5 On Scale temazepam 15 mg PO HS PRN #20 cap PRN Reason: Insomnia DS: Summary Hospital Course: On the day of admission the patient was taken to the operating room where he underwent a left total shoulder arthroplasty. The patient tolerated the procedure well. For details of the operative procedure please see dictated operative note. The patient was placed on Ancef for infection prophylaxis. On postoperative day #1 he was out of bed to a chair. His pain was well controlled. He was afebrile. His dressing was dry and intact and he was neurovascularly intact. - Time Spent with Patient Total time spent providing and/or coordinating discharge services: Less than 30 minutes - Quality: AMI Clinical Trial Participant: No - Quality: VTE Deep Vein Thrombosis/Pulmonary Embolism Present on Admission: No Exam Vital signs: Vital Signs 04/16/18 10:05 04/16/18 11:02 04/16/18 12:04 Temperature 98.4 F Pulse Rate 64 75 74 Respiratory Rate 16 16 20 Blood Pressure 149/84 H 119/70 110/66 Pulse Oximetry 97 98 96 04/16/18 16:15 04/16/18 16:30 04/16/18 16:45 Temperature 98.6 F Pulse Rate 101 H 91 H 91 H Respiratory Rate 18 16 16 Blood Pressure 183/90 H 150/81 H 150/81 H Pulse Oximetry 99 98 98 04/16/18 17:00 04/16/18 17:50 04/16/18 20:00 Temperature 98.5 F 98.6 F 98.5 F Pulse Rate 96 H 103 H 109 H Respiratory Rate 14 18 17 Blood Pressure 150/84 H 148/78 H 133/75 Pulse Oximetry 98 95 96 04/17/18 00:00 04/17/18 04:00 Temperature 98.0 F 97.8 F Pulse Rate 103 H 91 H Respiratory Rate 17 18 Blood Pressure 126/78 162/80 H Pulse Oximetry 97 97 Intake & Output 04/16/18 04/17/18 04/17/18 18:59 06:59 18:59 Intake Total 1600 / 1600 1100 / 1100 Output Total 150 / 150 Balance 1450 / 1450 1100 / 1100 Weight 86.1 kg 86.4 kg Intake: IV 1300 / 1300 1100 / 1100 LR 1000 mL Inj 1,000 ML @ 80 1000 / 1000 mls/hr IV.CONT .[id number] [facility] Rx# :[id number] LR 1000 mL Inj 1,000 ML @ 30 1000 / 1000 mls/hr IV.SIG .Q24H [facility] Rx#: [id number] Vancomycin Inj 1,000 MG In NS 250 / 250 Inj 250 ML @ 250 mls/hr IV.SIG DATA SUPPORT SPECIALIST [facility] Rx#:[id number] Ancef 2 GM Premix Inj 2 gm In 50 / 50 100 / 100 50 ml @ 100 mls/hr IV.SIG Q6H [facility] Rx#:[id number] Anesthesia Amount 300 / 300 Output: Estimated Blood Loss 150 / 150 Other: # Voids 5 Date of Last Bowel Movement 04/16/18 04/16/18 Weight On Admission 86.1 kg Narrative: The left shoulder dressing is dry and intact. There is mild swelling. There is no drainage. He has normal sensation over the lateral deltoid. He has full mobility of the elbow and wrist. Neurologically no focal deficit. Results Procedures completed during hospitalization: Left total shoulder arthroplasty 04/16/2018 Labs on day of discharge: Labs from last 24 hours 04/17/18 04/17/18 04/16/18 07:38 04:57 20:36 Hgb 10.7 L Hct 30.8 L Sodium Potassium Chloride Carbon Dioxide Anion Gap BUN Creatinine Estimated GFR POC Glucose 215 H 373 H Random Glucose Calcium Blood Type Blood Type Recheck Antibody Screen 04/16/18 04/16/18 04/16/18 18:02 16:45 16:26 Hgb Hct Sodium 138 Potassium 5.0 Chloride 103 Carbon Dioxide 23.6 Anion Gap 11 BUN 34 H Creatinine 1.70 H Estimated GFR 40 L POC Glucose 271 H 254 H Random Glucose 270 H Calcium 8.3 L Blood Type Blood Type Recheck Antibody Screen 04/16/18 10:00 Hgb Hct Sodium Potassium Chloride Carbon Dioxide Anion Gap BUN Creatinine Estimated GFR POC Glucose Random Glucose Calcium Blood Type B Positive Blood Type Recheck Required Antibody Screen Negative - Impressions ITS Impressions Shoulder X-Ray 04/16/18 00:00 CONCLUSION: Anatomic alignment Discharge Plan - Discharge Disposition Patient Disposition: 01 Discharge Home - Discharge Condition Condition: Good - Discharge Order Discharge Orders: Discharge Order (Routine); Ordered 04/17/18 Ordered By: Guillaume Urban Orthopedic Clear for Discharge (Routine); Ordered 04/17/18 Ordered By: Guillaume Urban - Discharge Details Anticipated Discharge Date: 04/17/18 - Physicians Team Primary Care Provider: Juan Miguel Reynolds Attending Provider: Guillaume Urban Other Providers: Deonna Perez MD - Rxs /Orders / Referrals /Forms Prescriptions: New glucagon (human recombinant) [GlucaGen Diagnostic Kit] 1 mg/mL Recon Soln 1 mg OTHER PRN PRN (Reason: for Hypoglycemia Protocol) RF: 0 insulin aspart U-100 [Novolog U-100 Insulin aspart] 100 unit/mL Solution 0 unit subcut ACHS RF: 0 losartan 50 mg Tablet 100 mg PO DAILY RF: 0 oxycodone-acetaminophen 5-325 mg Tablet 1 tab PO Q4H PRN (Reason: Pain Less Than 5 On Scale) Qty: 30 RF: 0 temazepam 15 mg Capsule 15 mg PO HS PRN (Reason: Insomnia) Qty: 20 RF: 0 Continue acarbose 25 mg Tablet 25 mg PO TIDAC amlodipine 5 mg Tablet 5 mg PO DAILY empagliflozin [Jardiance] 10 mg Tablet 10 mg PO DAILY linagliptin [Tradjenta] 5 mg Tablet 5 mg PO DAILY metformin 1,000 mg Tablet 1,000 mg PO BID olmesartan 40 mg Tablet 40 mg PO DAILY omeprazole 20 mg Capsule,Delayed Release(Dr/Ec) 20 mg PO DAILY Discontinued oxycodone-acetaminophen 5-325 mg Tablet 1 tab PO Q4-6H PRN (Reason: Pain) Referrals: Juan Miguel Reynolds MD [Primary Care Provider] - See Instructions - Discharge Instructions Patient Printed Instructions: Shoulder Arthroplasty (DC)
[2018-04-17] MEDS: Senna/Docusate Sodium 8.6/50 MG Tablet PO SCH (08:03)
[2018-04-17] MEDS: Insulin NovoLOG Aspart Correctional Sugar Inj SQ SCH ×2 (08:17→12:27)
[2018-04-17] MEDS ORDERED: Pantoprazole Sodium 20 MG DR Tablet PO SCH (09:00)
[2018-04-17] MEDS ORDERED: amLODIPine 5 MG Tablet PO SCH (09:00)
[2018-04-17] MEDS ORDERED: oxyCODONE/Acetaminophen 10/325 Tablet PO PRN (09:24)
--- NOTE | 2018-04-17 09:33 | P.PNIM ---
Subjective Interval history: Follow-up for hypertension diabetes No overnight events, did not sleep well, pain is not controlled, requesting for increased dose of Percocet. No nausea, vomiting, chest pain, shortness of breath or headache. Afebrile. Blood glucose on the high side. Physical Exam Vital signs: Vital Signs 04/16/18 10:05 04/16/18 11:02 04/16/18 12:04 Temperature 98.4 F Pulse Rate 64 75 74 Respiratory Rate 16 16 20 Blood Pressure 149/84 H 119/70 110/66 Pulse Oximetry 97 98 96 04/16/18 16:15 04/16/18 16:30 04/16/18 16:45 Temperature 98.6 F Pulse Rate 101 H 91 H 91 H Respiratory Rate 18 16 16 Blood Pressure 183/90 H 150/81 H 150/81 H Pulse Oximetry 99 98 98 04/16/18 17:00 04/16/18 17:50 04/16/18 20:00 Temperature 98.5 F 98.6 F 98.5 F Pulse Rate 96 H 103 H 109 H Respiratory Rate 14 18 17 Blood Pressure 150/84 H 148/78 H 133/75 Pulse Oximetry 98 95 96 04/17/18 00:00 04/17/18 04:00 Temperature 98.0 F 97.8 F Pulse Rate 103 H 91 H Respiratory Rate 17 18 Blood Pressure 126/78 162/80 H Pulse Oximetry 97 97 Intake & Output 04/16/18 04/17/18 04/17/18 18:59 06:59 18:59 Intake Total 1600 / 1600 1100 / 1100 Output Total 150 / 150 Balance 1450 / 1450 1100 / 1100 Weight 86.1 kg 86.4 kg Intake: IV 1300 / 1300 1100 / 1100 LR 1000 mL Inj 1,000 ML @ 80 1000 / 1000 mls/hr IV.CONT .[id number] [facility] Rx# :[id number] LR 1000 mL Inj 1,000 ML @ 30 1000 / 1000 mls/hr IV.SIG .Q24H [facility] Rx#: [id number] Vancomycin Inj 1,000 MG In NS 250 / 250 Inj 250 ML @ 250 mls/hr IV.SIG RESIDENT PROGRAMS ASSISTANT [facility] Rx#:[id number] Ancef 2 GM Premix Inj 2 gm In 50 / 50 100 / 100 50 ml @ 100 mls/hr IV.SIG Q6H [facility] Rx#:[id number] Anesthesia Amount 300 / 300 Output: Estimated Blood Loss 150 / 150 Other: # Voids 5 Date of Last Bowel Movement 04/16/18 04/16/18 Weight On Admission 86.1 kg Narrative: Not in distress, well-nourished, looks stated age PERRL, pink conjunctiva without injection, anicteric Nose without bleeding, airway patent Normal rate and regular rhythm, positive for systolic murmur, also with S3, per patient, baseline. Clear to auscultation and symmetric bilaterally, normal respiratory effort. Normal bowel sounds, soft, non-tender, nondistended, no guarding. Extremities without clubbing, cyanosis, or edema. Left shoulder in a sling No rash of generalized distribution. AAO x3, no cranial nerve deficits, moves all 4 extremities, no focal neurologic deficits Normal mood, appropriate affect Results - Labs CBC & Chem 7: 04/17/18 04:57 04/16/18 16:45 Laboratory Results - last 24 hr 04/16/18 04/16/18 04/16/18 10:00 16:26 16:45 Hgb Hct Sodium 138 Potassium 5.0 Chloride 103 Carbon Dioxide 23.6 Anion Gap 11 BUN 34 H Creatinine 1.70 H Estimated GFR 40 L POC Glucose 254 H Random Glucose 270 H Calcium 8.3 L Blood Type B Positive Blood Type Recheck Required Antibody Screen Negative 04/16/18 04/16/18 04/17/18 18:02 20:36 04:57 Hgb 10.7 L Hct 30.8 L Sodium Potassium Chloride Carbon Dioxide Anion Gap BUN Creatinine Estimated GFR POC Glucose 271 H 373 H Random Glucose Calcium Blood Type Blood Type Recheck Antibody Screen 04/17/18 07:38 Hgb Hct Sodium Potassium Chloride Carbon Dioxide Anion Gap BUN Creatinine Estimated GFR POC Glucose 215 H Random Glucose Calcium Blood Type Blood Type Recheck Antibody Screen - Imaging Impressions Shoulder X-Ray 04/16/18 00:00 CONCLUSION: Anatomic alignment - Procedures Left total shoulder arthroplasty 04/16/2018 Assessment and Plan - Plan Patient is a 67-year-old male with past medical history of diabetes, hypertension who initially came in to the hospital surgical intervention secondary to osteoarthritis of the left shoulder. Patient is status post left total shoulder arthroplasty. [facility] consulted for assistance with medical management. Status post left total shoulder arthroplasty, Dr. Urban 04/16/18 Left shoulder osteoarthritis -Occupational Therapy/physical therapy eval and treat -Pain not controlled, will give extra dose of Percocet 5 mg now and will discharge on 10/325 mg every 4 hours. DM 2 -Home medications include Jardiance 10 mg, Tradjenta 5 mg, bicarb is 50 mg 3 times a day with food, metformin 1000 mg -Blood glucose not controlled, increase sliding scale to medium, Accu-Cheks, may restart metformin, Jardiance and linagliptin now since patient is for discharge today. -Monitor for hypoglycemia. Diabetic diet HTN -Continue home medication amlodipine 5 mg daily, Cozaar 100 mg p.o. daily ( Olmesartan 40mg) -BP trend, blood pressure a little bit elevated this morning which could be secondary to pain or lack of sleep Chronic kidney disease stage III -Patient states that he knew about his kidney disease but has not seen any facilities administrator and outpatient, at baseline. -Avoid nephrotoxins DVT prop SCDs PPI pantoprazole Cleared for discharge today. Physical therapy evaluation. Progress Note: Quality - AMI Clinical Trial Participant: No
[2018-04-17] MEDS ORDERED: Ketorolac Inj 30 MG/ML (IVP) Vial IV.PUSH ONE (12:00)
[2018-04-18] MEDS ORDERED: LINAGLIPTIN PO SCH (09:00)
[2018-04-18] MEDS ORDERED: EMPAGLIFLOZIN 10 MG PO SCH (09:00)
== END 2018-04-17 16:34 | disposition home or self-care (01) ==
LOC: HSDI 09:06 → INTOOBSV 09:06 → N06 17:28
PROVIDERS: ADMIT Orthopaedic Surgery Sports Medicine; ATTEND Orthopaedic Surgery Sports Medicine